=== PATIENT | female | born 1965 | race Caucasian/White ===

== ENCOUNTER → 2018-04-20 | Outpatient (CLI) | payer BC ==
[~2018-04-20] MED LIST: ADIPEX-P37.5 MG PO; AMBIEN 5MG TABLE5 MG PO; BELVIQ PO; BENEFIBER1 POW PO; CHROMIUM PICOLI1 TAB PO; CONTRAVE PO; CONTRAVE1 TER PO; FASTIN30 MG PO; HCTZ 25MG TAB25 MG PO; PRINZIDE 12.5 M1 TAB PO; SAXENDA6 MG/ML SQ; TOPAMAX 25MG25 M1 PO; VIACTIV CARAMEL PO; VITAMIN D32000 I1 PO; [UNRECOGNIZED DRUG - OTHER] PO
== END ==
LOC: MC.RAD 06:52
DX: Z12.31 Encounter for screening mammogram for malignant neoplasm of breast (principal)

== ENCOUNTER → 2019-04-26 | Outpatient (CLI) | payer BC | LOC: MC.RAD 08:02 | DX: Z12.31 Encounter for screening mammogram for malignant neoplasm of breast (principal) ==

== ENCOUNTER → 2020-05-01 | Outpatient (CLI) | payer BC ==
[~2020-05-01] VITALS: Ht 158.8 cm; Wt 102.5 kg
[~2020-05-01] MED LIST changes: +VITAMIN D31000 I1 PO
== END ==
LOC: LIGHT 11:32
DX: E66.8 Other obesity (principal); Z68.41 Body mass index [BMI] 40.0-44.9, adult

== ENCOUNTER → 2020-05-15 | Outpatient (CLI) | payer BC ==
[~2020-05-15] MED LIST changes: -VITAMIN D31000 I1 PO
== END ==
LOC: MC.RAD 07:32
DX: Z12.31 Encounter for screening mammogram for malignant neoplasm of breast (principal)

== ENCOUNTER → 2020-05-25 | Outpatient (CLI) | payer BC ==
[~2020-05-25] VITALS: Ht 158.8 cm; Wt 100.9 kg
[~2020-05-25] MED LIST changes: +VITAMIN D31000 I1 PO
[2020-05-25 13:34] VITALS: BP 164/86; PULSE 64
== END ==
LOC: LIGHT 10:27
DX: E66.01 Morbid (severe) obesity due to excess calories (principal); Z68.41 Body mass index [BMI] 40.0-44.9, adult; I10 Essential (primary) hypertension; E78.5 Hyperlipidemia, unspecified
CPT/HCPCS: G0463

== ENCOUNTER → 2020-07-13 | Outpatient (CLI) | payer BC ==
[~2020-07-13] VITALS: Ht 158.8 cm; Wt 98.0 kg
[~2020-07-13] MED LIST changes: +VIACTIV PO
[2020-07-13 15:04] VITALS: BP 154/88; PULSE 72
== END ==
LOC: LIGHT 11:18
DX: E66.8 Other obesity (principal); Z68.38 Body mass index [BMI] 38.0-38.9, adult; I10 Essential (primary) hypertension; G47.00 Insomnia, unspecified
CPT/HCPCS: G0463

== ENCOUNTER 2021-05-24 08:21 | Day surgery (SDC) | payer BC ==
[~2021-05-24] VITALS: Ht 157.5 cm; Wt 102.4 kg
[2021-05-24 08:43] VITALS: BP 138/85; PULSE 86; TEMP 96.8
[2021-05-24] MEDS ORDERED: HYZAAR 12.5 MG-1 TAB PO (09:05)
[2021-05-24] MEDS ORDERED: PEPCID 20MG TAB20 MG PO (09:06)
[2021-05-24 10:05] VITALS: BP 97/59; PULSE 80; TEMP 97
--- NOTE | 2021-05-24 10:16 | NUR ---
1005-Patient ambulated with standby assistance from cart to recliner and she did well. Connected to monitors and vitals are stable. She denies having any nausea or abdominal pain at this time. Abdomen is soft and nontender to palpation. Given cranberry juice per request. Will continue to monitor status.
[2021-05-24 10:20] VITALS: BP 104/72; PULSE 71; TEMP 97.3
--- NOTE | 2021-05-24 10:20 | NUR ---
1020-Patient tolerated cranberry juice without any N/V. Vitals remain stable. 1025-IV site removed from right hand and tip of catheter is intact. No active bleeding noted. Cotton ball and tape applied. She is getting dressed and prepared for discharge home. She denies any complaints or concerns at this time. Will prepare discharge paperwork.
[2021-05-24 10:35] VITALS: BP 105/70; PULSE 72
--- NOTE | 2021-05-24 10:35 | NUR ---
1035-Patient continues doing well and vitals are stable. She is dressed and ready for discharge home. 1040-Discussed discharge instructions and copy provided to her. She denies having any questions or concerns at this time. 1045-Taken via wheelchair to [facility] lobby and assisted into private vehicle with her dad. Belongings and discharge instructions are with her.
== END 2021-05-24 10:40 | disposition home or self-care (01) ==
LOC: SDCO 08:21
DX: Z12.11 Encounter for screening for malignant neoplasm of colon (principal); K57.30 Diverticulosis of large intestine without perforation or abscess without bleeding; K21.9 Gastro-esophageal reflux disease without esophagitis; I10 Essential (primary) hypertension; E66.01 Morbid (severe) obesity due to excess calories; G47.00 Insomnia, unspecified; F41.9 Anxiety disorder, unspecified; F32.9 Major depressive disorder, single episode, unspecified; Z90.49 Acquired absence of other specified parts of digestive tract; Z68.41 Body mass index [BMI] 40.0-44.9, adult; Z79.899 Other long term (current) drug therapy; Z86.010 Personal history of colon polyps
CPT/HCPCS: J2704; J7030

== ENCOUNTER → 2022-07-10 | Outpatient (CLI) | payer BC ==
[~2022-07-10] MED LIST changes: +HYZAAR 12.5 MG-1 TAB PO; +PEPCID 20MG TAB20 MG PO
== END ==
LOC: MC.RAD 07:20
DX: Z12.31 Encounter for screening mammogram for malignant neoplasm of breast (principal)

== ENCOUNTER → 2024-07-13 | Outpatient (CLI) | payer BC | LOC: MC.RAD 07:18 | DX: Z12.31 Encounter for screening mammogram for malignant neoplasm of breast (principal) ==